=== PATIENT | male | born 1965 | race Caucasian/White ===

== ENCOUNTER 2018-04-06 11:40 | Emergency (ER) | payer OTHER ==
[~2018-04-06] VITALS: Ht 182.9 cm; Wt 96.9 kg
[2018-04-06 11:43] VITALS: BP 150/93
== END 2018-04-06 12:44 | disposition home or self-care (01) ==
LOC: ED 12:38
DX: B02.9 Zoster without complications (principal); J30.9 Allergic rhinitis, unspecified; J45.909 Unspecified asthma, uncomplicated
CPT/HCPCS: 99283

== ENCOUNTER 2018-06-27 13:40 | Emergency (ER) | payer MEDICAID ==
[~2018-06-27] VITALS: Ht 185.4 cm; Wt 96.3 kg
[2018-06-27] MEDS ORDERED: ALBUTEROL/IPRATROPIUM 2.5MG/0.5MG, 3 ML NPPB SCH (14:00)
[2018-06-27] MEDS ORDERED: ALBU6.7H INH (14:14)
[2018-06-27] MEDS ORDERED: ALBU0.63 NEB (14:14)
[2018-06-27] MEDS ORDERED: ALBU18HF INH (14:14)
--- NOTE | 2018-06-27 14:17 | NUR ---
Plan of care discussed with patient, questions answered. Waiting for breathing treatment, call merida within reach.
[2018-06-27] MEDS ORDERED: ALBUTEROL/IPRATROPIUM 2.5MG/0.5MG, 3 ML ONE (14:31)
[2018-06-27 14:45] VITALS: BP 118/79
== END 2018-06-27 14:46 | disposition home or self-care (01) ==
LOC: ED 14:25
DX: R06.00 Dyspnea, unspecified (principal); J45.909 Unspecified asthma, uncomplicated
CPT/HCPCS: 71046; 93005; 94640; 99283; J7512

== ENCOUNTER 2019-01-09 13:58 | Emergency (ER) | payer MEDICAID ==
[~2019-01-09] VITALS: Ht 182.9 cm; Wt 90.3 kg
[~2019-01-09 13:58] MED LIST: ALBU0.63 NEB; ALBU18HF INH; ALBU6.7H INH
[2019-01-09 14:57] LABS: BASOPHILS # (AUTO) 0.03 x10^3/uL (0-0.1); BASOPHILS % (AUTO) 1 % (0-1); EOSINOPHILS # (AUTO) 0.34 x10^3/uL (0-0.4); EOSINOPHILS % (AUTO) 5 % (1-7); LYMPHOCYTES # (AUTO) 2.26 x10^3/uL (1-3.4); LYMPHOCYTES % (AUTO) 31 % (22-44); MD NO; MEAN CORPUSCULAR HEMOGLOBIN 29.8 pg (27.5-34.5); MEAN CORPUSCULAR VOLUME 90.2 fL (81-97); MEAN PLATELET VOLUME 8.5 fL (7.4-10.4); MONOCYTES # (AUTO) 0.79 x10^3/uL (0.2-0.8); MONOCYTES % (AUTO) 11 % (2-9); NEUTROPHILS # (AUTO) 3.87 x10^3/uL (1.8-6.8); NEUTROPHILS % (AUTO) 53 % (42-75); PLATELET COUNT 268 x10^3/uL (130-400); RED BLOOD COUNT 5.06 x10^6/uL (4.38-5.82); RED CELL DISTRIBUTION WIDTH 14.7 % (9.4-14.8)
[2019-01-09 15:03] LABS: ALBUMIN 3.2 g/dL (3.4-5.0); ANION GAP 5 mmol/L (5-15); CALCIUM 8.7 mg/dL (8.5-10.1); CHLORIDE 109 mmol/L (98-107)
--- NOTE | 2019-01-09 16:02 | NUR ---
pt to ed for swelling and erythema to right arm and right ankle after shooting up meth "a few weeks ago". pt connected to monitors. vss. pit orders received. labs drawn. awaiting results, us and edmd assessment. report to sabiha yadav.
--- NOTE | 2019-01-09 16:07 | NUR ---
Assessment complete; patient verbalizes no distress; VSS; awaiting ultrasound.
[2019-01-09] MEDS ORDERED: albuterol inhaler (16:10)
--- NOTE | 2019-01-09 16:44 | NUR ---
Patient resting in bed; RN attempted IV; pt aware difficult stick; verbalized understanding that other access may need to be attempted. VSS. Awaiting access for CT
--- NOTE | 2019-01-09 17:40 | NUR ---
Paatient to CT
--- NOTE | 2019-01-09 18:13 | NUR ---
Patient returned form CT; placed on monitor single set of vitals obtained; patient to bathroom. Awaiting further orders
--- NOTE | 2019-01-09 18:35 | NUR ---
all results back at this time. chart up for recehck.
[2019-01-09 19:06] VITALS: BP 133/86
--- NOTE | 2019-01-09 19:07 | NUR ---
BREAK RN FOR PRIMARY RN'S JUDE. PT RESTING IN POSITION OF COMFORT. DENIES NEED TO USE RESTROOM. REQUESTING PAIN MEDICATION FOR 8/10 RIGHT ARM PAIN. TO DISCUSS WITH ERP. VSS. CALL LIGHT IN REACH. AWAITING RECHECK BY ERP
--- NOTE | 2019-01-09 19:14 | NUR ---
REPORT AND CARE BACK TO PRIMARY RN'S JUDE.
[2019-01-09] MEDS ORDERED: LIDOCAINE-MPF 1%, 5ML ONE (19:22)
--- NOTE | 2019-01-09 19:26 | NUR ---
PA to bedside for I&D of wound; wound addressed; educated on what to look for should patient need to return to hospital. VSS; awaiting further orders
[2019-01-09] MEDS ORDERED: CEPHALEXIN 500 MG CAPSULE PO ONE (19:30)
[2019-01-09] MEDS ORDERED: LIDOCAINE 1%, 10ML INFIL ONE (19:30)
[2019-01-09] MEDS ORDERED: ACETAMINOPHEN 500 MG TABLET PO ONE (19:30)
[2019-01-09] MEDS ORDERED: SULFAMETH./TRIMETHOPRIM DS 800MG/160MG TABLET PO ONE (19:30)
[2019-01-09] MEDS ORDERED: CEPHALEXIN 500 MG CAPSULE ONE (19:33)
[2019-01-09] MEDS ORDERED: ACETAMINOPHEN 500 MG TABLET ONE (19:33)
[2019-01-09] MEDS ORDERED: SULFAMETH./TRIMETHOPRIM DS 800MG/160MG TABLET ONE (19:33)
== END 2019-01-09 19:49 | disposition home or self-care (01) ==
LOC: ED 16:55
DX: L03.113 Cellulitis of right upper limb (principal); J45.909 Unspecified asthma, uncomplicated
CPT/HCPCS: 10060; 36415; 73201; 80048; 82040; 85025; 99284; J3490

== ENCOUNTER 2020-01-31 15:04 | Emergency (ER) | payer MEDICAID, OTHER ==
[~2020-01-31] VITALS: Ht 185.4 cm; Wt 96.7 kg
[~2020-01-31 15:04] MED LIST changes: -ALBU6.7H INH; +ALBU6.7H8 INH; +albuterol inhaler
[2020-01-31 15:44] VITALS: BP 113/67
[2020-01-31] MEDS ORDERED: SODIUM CHLORIDE FLUSH 10ML SYR IVF ONE (16:00)
[2020-01-31] MEDS ORDERED: DIPH,PERTUSS(ACELL),TET VAC/PF 0.5 ML IM-VACC ONE (16:00)
--- NOTE | 2020-01-31 16:01 | NUR ---
NEWSPAPER EDITOR: PT TO ROOM FROM LOBBY
[2020-01-31 16:17] LABS: BASOPHILS # (AUTO) 0.07 x10^3/uL (0-0.1); BASOPHILS % (AUTO) 1 % (0-1); EOSINOPHILS # (AUTO) 0.21 x10^3/uL (0-0.4); EOSINOPHILS % (AUTO) 3 % (1-7); LYMPHOCYTES % (AUTO) 20 % (22-44); MD NO; MEAN CORPUSCULAR HEMOGLOBIN 28.1 pg (27.5-34.5); MEAN PLATELET VOLUME 8.7 fL (7.4-10.4); MONOCYTES # (AUTO) 0.99 x10^3/uL (0.2-0.8); MONOCYTES % (AUTO) 12 % (2-9); NEUTROPHILS # (AUTO) 5.47 x10^3/uL (1.8-6.8); NEUTROPHILS % (AUTO) 65 % (42-75); PLATELET COUNT 243 x10^3/uL (130-400); RED BLOOD COUNT 5.52 x10^6/uL (4.38-5.82); RED CELL DISTRIBUTION WIDTH 14.1 % (9.4-14.8)
[2020-01-31 16:28] LABS: ALBUMIN 3.1 g/dL (3.4-5.0); ANION GAP 4 mmol/L (5-15); CALCIUM 8.5 mg/dL (8.5-10.1); CHLORIDE 107 mmol/L (98-107)
[2020-01-31 16:31] LABS: ALANINE AMINOTRANSFERASE 45 U/L (12-78); ALKALINE PHOSPHATASE 94 U/L (45-117); TOTAL PROTEIN 7.5 g/dL (6.4-8.2)
[2020-01-31] MEDS ORDERED: CLINDAMYCIN 150 MG CAPSULE PO ONE (17:00)
== END 2020-01-31 17:49 ==
LOC: ED 17:43
DX: S91.311A Laceration without foreign body, right foot, initial encounter (principal); L03.115 Cellulitis of right lower limb; J45.909 Unspecified asthma, uncomplicated; W26.0XXA Contact with knife, initial encounter; Y93.89 Activity, other specified; Y92.69 Other specified industrial and construction area as the place of occurrence of the external cause; Y99.0 Civilian activity done for income or pay
CPT/HCPCS: 36415; 80053; 83605; 85025; 87040; 99284

== ENCOUNTER 2020-06-09 18:24 | Emergency (ER) | payer MEDICAID, OTHER ==
--- NOTE | 2020-06-09 18:32 | NUR ---
MERCHANDISE BUYER NOTE: NO ANSWER WHEN CALLED FROM [facility]
--- NOTE | 2020-06-09 18:42 | NUR ---
LICENSED VOCATIONAL NURSE NOTE: NO ANSWER WHEN CALLED FROM [facility] SECOND TIME
--- NOTE | 2020-06-09 19:00 | NUR ---
No answer when called; patient's neighbor in waiting room states he was in the car and would contact him.
--- NOTE | 2020-06-09 19:16 | NUR ---
No answer when called.
== END 2020-06-09 19:17 | disposition left against medical advice (07) ==
LOC: ED 18:45
DX: M79.671 Pain in right foot (principal); Z53.21 Procedure and treatment not carried out due to patient leaving prior to being seen by health care provider